=== PATIENT | female | born 1975 | race Caucasian/White ===

== ENCOUNTER 2017-04-12 07:19 | Emergency (ER) | payer OTHER ==
[2017-04-12 07:55] LABS: BASOPHIL 0.3 % (0-2); EOSINOPHIL 1.9 % (0-5); HCT 45.5 % (37.0-47.0); HGB 15.5 g/dl (12.5-16.0); LYMPHOCYTE 21.9 % (15-48); MCH 30.5 pg (25.0-31.0); MCHC 34.1 g/dL (32.0-36.0); MCV 89.6 fL (78.0-100.0); MONOCYTE 10.2 % (0-12); MPV 10.2 fL (6.0-9.5); NEUTROPHIL 65.7 % (41-80); PLT 295 K/uL (150-400); RBC 5.08 M/uL (4.20-5.40); RDW 14.7 % (11.5-14.0); WBC 7.8 K/uL (4.0-10.5)
[2017-04-12 08:07] LABS: INR 1.02 (0.9-1.2); PTT 33.9 SECONDS (23.2-31.4)
[2017-04-12 08:12] LABS: CKMB 1.06 ng/mL (0.97-4.94); TROPONIN T < 0.010 ng/mL
[2017-04-12 08:13] LABS: ALBUMIN 3.7 g/dL (3.5-5.0); BILIRUBIN - TOTAL 0.7 mg/dL (0.1-1.0); CREATININE 0.8 mg/dL (0.5-1.0); GLOBULIN (CALCULATION) 3.1 g/dL (2.2-4.2); TOTAL PROTEIN 6.8 g/dL (6.4-8.3)
== END 2017-04-12 13:45 | disposition other institution (70) ==
LOC: FER 07:19
PROVIDERS: Emergency Medicine
DX: R07.9 Chest pain, unspecified (principal); R06.02 Shortness of breath; I25.10 Atherosclerotic heart disease of native coronary artery without angina pectoris; Z88.5 Allergy status to narcotic agent; Z79.82 Long term (current) use of aspirin; Z79.899 Other long term (current) drug therapy; Z95.5 Presence of coronary angioplasty implant and graft
CPT/HCPCS: 36415; 71010; 80053; 82550; 82553; 84484; 85025; 85610; 85730; 93005; 96372; J2060; J2405

== ENCOUNTER → 2020-10-28 | Day surgery (SDC) | payer OTHER ==
[~2020-10-28] MED LIST: AZITHROMYCIN250 MG PO; CHILDREN'S ASPI81 MG PO; CYCLOBENZAPRINE10 MG PO; DICLOFENAC SODI75 MG PO; LIPITOR40 MG PO; LOPRESSOR25 MG PO; PREDNISONE 20MG20 MG PO; TESSALON PERLE100 M1 PO; VENTOLIN HFA IN18 GM INH; ZOFRAN8 MG PO
[2020-10-28 08:05] LABS: HCG (URINE) SCREEN NEGATIVE (NEGATIVE)
== END | disposition home or self-care (01) ==
LOC: FAS 07:40
PROVIDERS: Anesthesiology
DX: Z12.11 Encounter for screening for malignant neoplasm of colon (principal); D12.3 Benign neoplasm of transverse colon; D68.51 Activated protein C resistance; D68.59 Other primary thrombophilia; F41.9 Anxiety disorder, unspecified; F17.210 Nicotine dependence, cigarettes, uncomplicated; I25.2 Old myocardial infarction; I10 Essential (primary) hypertension; Z80.0 Family history of malignant neoplasm of digestive organs; Z79.82 Long term (current) use of aspirin; Z79.899 Other long term (current) drug therapy; Z88.5 Allergy status to narcotic agent; Z95.5 Presence of coronary angioplasty implant and graft
CPT/HCPCS: 84703; J2250; J2704; J7120